=== PATIENT | male | born 1995 | race African-American/Black ===

== ENCOUNTER 2019-09-03 23:11 | Emergency (ER) | payer SELFPAY ==
[2019-09-03] MEDS ORDERED: Acetaminophen 500 MG TAB ONE (23:51)
== END 2019-09-04 00:05 | disposition home or self-care (01) ==
LOC: NAV ERS 23:11
DX: J06.9 Acute upper respiratory infection, unspecified (principal); R19.7 Diarrhea, unspecified; F17.210 Nicotine dependence, cigarettes, uncomplicated
CPT/HCPCS: 87804; 99283

== ENCOUNTER 2020-07-28 12:03 | Emergency (ER) | payer SELFPAY ==
[2020-07-28] MEDS ORDERED: Naproxen 500 MG TAB ONE (12:34)
== END 2020-07-28 13:00 | disposition home or self-care (01) ==
LOC: NAV ERS 12:03
DX: L02.511 Cutaneous abscess of right hand (principal); F17.210 Nicotine dependence, cigarettes, uncomplicated
CPT/HCPCS: 26010